=== PATIENT | female | born 2005 ===

== ENCOUNTER 2024-06-03 15:21 | Outpatient (REF) | payer OTHER, SELFPAY ==
--- NOTE | ~2024-06-03 | US_ITS ---
CLINICAL HISTORY: ACUTE FLANK PAIN LEFT SIDE US Renal Comparison: None Findings: Right kidney normal size and echotexture, 10.1 cm length. Left kidney normal size and echotexture, 10.8 cm length. No hydronephrosis of either kidney. Normal color Doppler. Urinary bladder is unremarkable. Prevoid volume 566 mL. Postvoid volume 11 mL. Bilateral ureteral jets are visualized. IMPRESSION: 1. Normal kidneys. This document has been electronically signed by: Lana Hernandez MD on 06/03/2024 16:37:01
== END 2024-06-03 15:22 | disposition home or self-care (01) ==
LOC: HO.UMASIMG 15:21
PROVIDERS: Visit Provider Nurse Practitioner
DX: R10.9 Unspecified abdominal pain (principal)
CPT/HCPCS: 76770

== ENCOUNTER → 2024-06-03 15:30 | Outpatient (BNV) | payer OTHER, SELFPAY | PROVIDERS: Visit Provider Radiology Diagnostic Radiology | DX: R10.9 Unspecified abdominal pain (principal) | CPT/HCPCS: 76770 ==